=== PATIENT | female | born 2000 | race Caucasian/White ===

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

== ENCOUNTER 2024-11-03 18:28 | Emergency (ER) | payer OTHER, SELFPAY ==
--- NOTE | 2024-11-03 18:37 | ED.ABDPAIN ---
HPI - Abdominal Pain General Chief Complaint: Abdominal Pain Stated Complaint: Stomach Pain Time Seen by Provider: 11/03/24 18:37 Source: patient Mode of arrival: ambulatory Limitations: no limitations History of Present Illness HPI narrative: 24-year-old female presents with complaint of left lower quadrant abdominal pain since this morning. Intermittently radiating to left lower back. Reports pain getting progressively worse today. Recent positive test at home. Last menstrual period September 11, approximately 8 weeks . No vaginal bleeding. Patient tearful. No urinary symptoms. All systems reviewed and negative except as noted above. Related Data Home Medications ?Medication ?Instructions ?Recorded ?Confirmed ?Last Taken ?Type No Home Medications 11/03/24 11/03/24 Unknown History Allergies Allergy/AdvReac Type Severity Reaction Status Date / Time No Known Allergies Allergy Verified 11/03/24 18:38 Review of Systems Review of Systems: CONSTITUTIONAL: Denies fever, chills, or sweats. EYES: Denies visual changes, redness, or discharge. ENT: Denies rhinorrhea, congestion, sore throat, or otalgia. CARDIOVASCULAR: Denies chest pain, palpitations, or edema. RESPIRATORY: Denies cough or dyspnea. GASTROINTESTINAL: Reports left lower abdominal pain. Denies nausea, vomiting, or diarrhea. GENITOURINARY: Denies dysuria or hematuria. SKIN: Denies rash or itching. MUSCULOSKELETAL: Denies back pain, joint pain, or myalgia. NEUROLOGIC: Denies headache, numbness, or weakness. PSYCHIATRIC: Denies anxiety or depression. All other systems reviewed are negative, except as documented in HPI. [facility] Past Medical History Medical History (Updated 11/03/24 @ 18:51 by Faviola Lozano NP) Transposition great arteries Migraines Family History Family History Mother Diabetes mellitus Patient's mother is in good health High cholesterol Social History Social History Smoking status: Never smoker Second hand tobacco smoke exposure: No Alcohol intake: never Comments At time of signature, agree with nursing past medical, surgical, social and family history. There is no relevant family history pertinent to the presenting complaint. Exam Narrative: GENERAL: This is a well-nourished, well-developed patient, in no apparent distress. HEAD: normocephalic, atraumatic. EYES: PERRL. Sclera clear/white. Vision is grossly intact. EARS: External ears normal NOSE: External nose normal NECK: Neck supple, non-tender without lymphadenopathy, masses or thyromegaly. CARDIOVASCULAR: Regular rate and rhythm without murmurs, gallops, or rubs. RESPIRATORY: Clear to auscultation. Breath sounds equal bilaterally. No wheezes, rales, or rhonchi. SKIN: warm, Dry, intact with no suspicious lesions or rash, good texture and turgor. NEURO: awake, alert, and oriented to person, place and time. There were no obvious focal neurologic abnormalities. EXTREMITIES: No joint tenderness, effusion, or edema noted. Course Course Level of Care: Express Care Visit Vital Signs Vital signs: Vital Signs Temperature 37.4 C 11/03/24 18:38 Pulse Rate 89 11/03/24 18:38 Respiratory Rate 18 11/03/24 18:38 Blood Pressure 138/67 11/03/24 18:38 Pulse Oximetry 100 11/03/24 18:38 Temperature 37.4 C 11/03/24 18:38 Pulse Rate 89 11/03/24 18:38 Respiratory Rate 18 11/03/24 18:38 Blood Pressure 138/67 11/03/24 18:38 Pulse Oximetry 100 11/03/24 18:38 Reviewed Transfer Transfered to: [place] Transportation: Other (Private car) Transfer rationale: Patient approximately 8 weeks . No transferring to ER to rule out ectopic . Accepting physician: Estrella Nolasco nurse practitioner MDM - Abdominal Pain MDM Narrative Medical decision making narrative: Urinalysis trace leukocytes. No urinary symptoms, Most likely not urinary tract infection. Will transfer to ER to rule at topic . Lab Data Labs: Lab Results 11/03/24 Range/Units 18:43 POC Urine Color Yellow POC Urine Clarity Clear POC Urine pH 6.0 POC Ur Specif [place] 1.025 POC Urine Protein Negative (Negative) POC Ur Glucose (UA) Negative (Negative) POC Urine Ketones Negative (Negative) POC Urine Blood Negative (Negative) POC Urine Nitrite Negative (Negative) POC Urine Bilirubin Negative (Negative) POC Urine Urobilinogen 0.2 POC U Leukocyte Esteras Trace (Negative) POC Urine HCG, Qual Positive (Negative) Discharge Plan Discharge Clinical Impression: Left lower quadrant abdominal pain during Patient Disposition: Acute Care Hospital Condition: Stable Additional Instructions: Go directly to [facility]. Do not have anything to eat or drink. Patient Language: Bolivian Prescriptions: No Action No Home Medications Follow-up/Referrals: Nory,Nora Castro, SENIOR COMPUTER SPECIALIST [Primary Care Provider] - Time of Disposition: 18:51
[2024-11-03 18:38] VITALS: BP 138/67; PULSE 89; RESP 18; TEMP 37.4; O2SAT 100
[2024-11-03 18:45] LABS: BEDSIDEPREGUCG Positive (Negative); EDUAAPPEAR Clear; EDUABILI Negative (Negative); EDUABLOOD Negative (Negative); EDUACOLOR1 Yellow; EDUAGLUCOSE Negative (Negative); EDUAKETONE Negative (Negative); EDUALEUKO Trace (Negative); EDUANITRATE Negative (Negative); EDUAPROTEIN Negative (Negative); EDUASPGRAVITY 1.025; EDUAUROBILI 0.2
== END 2024-11-03 18:55 | disposition short-term general hospital (02) ==
PROVIDERS: Emergency Provider Nurse Practitioner Family; PCP Nurse Practitioner Family
DX: O99.891 Other specified diseases and conditions complicating pregnancy (principal); Z3A.08 8 weeks gestation of pregnancy; R10.32 Left lower quadrant pain
CPT/HCPCS: 81003; 81025; 99212; G0463

== ENCOUNTER 2024-11-03 19:09 | Emergency (ER) | payer OTHER, SELFPAY ==
--- NOTE | ~2024-11-03 | US_ITS ---
US OB <=14 wk fetus w TV Ordering provider: Opal Carr MD History: . R/O ectopic . Comparison: None. Technique: Transabdominal and endovaginal ultrasound of the pelvis (Doppler ultrasound interrogation techniques used as needed for this exam.) FINDINGS: CERVIX: Normal. UTERUS: Measures 8.8x 4.1x 5.9 cm in length which is within normal limits and is anteverted. No myom etrial masses. ENDOMETRIUM: Normal in thickness measuring 11 mm. (Note: the premenopausal endometrium may measure up to 16 mm when in the secretory phase.) No endometrial masses, cysts or fluid. CUL DE SAC: Minimal free fluid. RIGHT OVARY: Normal in size measuring 2.4x 1.2x 1.2 cm. Normal echotexture. Doppler vascular flow pre sent. LEFT OVARY: Normal in size measuring 3.7x 2.8x 2.2 Normal echotexture. Doppler vascular flow present. Simple cyst is seen measuring 1.9 x 1 x 1.1 cm. ADNEXA: Normal. No mass. IMPRESSION: No evidence of intrauterine . Follow-up advised. Left ovarian simple cyst. Minimal fluid in the cul-de-sac. Otherwise, normal pelvic ultrasound. Reviewed, dictated and finalized at location A. IMPRESSION: No evidence of intrauterine . Follow-up advised. Left ovarian simple c yst. Minimal fluid in the cul-de-sac. Otherwise, normal pelvic ultrasound.
[2024-11-03 19:11] VITALS: BP 149/81; PULSE 92; RESP 16; TEMP 36.8; O2SAT 100
--- NOTE | 2024-11-03 19:23 | PC.NURSE ---
Patient taken to US from waiting room.
--- NOTE | 2024-11-03 20:25 | ED_ITS ---
HPI - Abdominal Pain General Chief Complaint: Abdominal Pain Stated Complaint: L lower abd pain, R/O ectopic, sent from Time Seen by Provider: 11/03/24 20:09 History of Present Illness HPI narrative: Patient is a 24-year-old female who presents to the ER with left lower quadrant abdominal pain that started this morning. She reports the pain was so severe it woke her up from her sleep at 7:00 a.m. Patient reports she took Tylenol and Tums around 1:00 p.m., which helped relieve some of her pain. She denies any vaginal bleeding, abnormal vaginal discharge, or urinary symptoms. 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 She denies any other medical history relevant to this ER visit. Related Data Home Medications ?Medication ?Instructions ?Recorded ?Confirmed ?Last Taken ?Type No Home Medications 11/03/24 11/03/24 Unknown History Allergies Allergy/AdvReac Type Severity Reaction Status Date / Time No Known Allergies Allergy Verified 11/03/24 21:55 Review of Systems 2 Review of Systems: All systems reviewed & are unremarkable except as noted in HPI and below PMFSH Past Medical History Medical History (Updated 11/03/24 @ 23:07 by Megan Saeed APRN) Transposition great arteries Migraines Family History Family History Mother Diabetes mellitus Patient's mother is in good health High cholesterol Social History Social History Smoking status: Never smoker Second hand tobacco smoke exposure: No Alcohol intake: never Exam 2 Narrative: GENERAL: Well appearing, well-nourished, non-toxic, in no acute distress. HEAD: Normocephalic, atraumatic. NECK: Supple. No adenopathy, no masses. RESPIRATORY: Airway patent, respirations nonlabored. Clear to auscultation bilaterally, no rales, rhonchi, wheezing. CARDIOVASCULAR: Regular rate and rhythm with known murmur. Peripheral pulses 2+ and equal bilaterally. ABDOMINAL: Soft, tender LUQ, LLQ, and RLQ, nondistended, no hepatosplenomegaly. Normoactive BS. MUSCULOSKELETAL: Moves all extremities. Strength/ROM intact without gross deformities. SKIN: Warm, dry, normal color. No rashes. NEURO: A&O X3. Speech clear. Cranial nerves II-XII intact. No ataxic movements. PSYCHIATRIC: Appropriate mood and affect. Normal interaction. Course Vital Signs Vital signs: Vital Signs Temperature 36.8 C 11/03/24 19:11 Pulse Rate 92 11/03/24 19:11 Respiratory Rate 16 11/03/24 19:11 Blood Pressure 149/81 H 11/03/24 19:11 Pulse Oximetry 100 11/03/24 19:11 Oxygen Delivery Room Air 11/03/24 19:11 Temperature 36.8 C 11/03/24 19:11 Pulse Rate 92 11/03/24 19:11 Respiratory Rate 16 11/03/24 19:11 Blood Pressure 149/81 H 11/03/24 19:11 Pulse Oximetry 100 11/03/24 19:11 Oxygen Delivery Room Air 11/03/24 19:11 MDM - Abdominal Pain MDM Narrative Medical decision making narrative: Patient is a 24-year-old female who presents to the ER with left lower quadrant abdominal pain that started this morning. She reports the pain was so severe it woke her up from her sleep at 7:00 a.m. Patient reports she took Tylenol and Tums around 1:00 p.m., which helped relieve some of her pain. She denies any vaginal bleeding, abnormal vaginal discharge, or urinary symptoms. 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 She denies any other medical history relevant to this ER visit. Labs Ordered: CBC, CMP, APTT, INR, type and screen, Rh Immune Globulin screen, UA Imaging Ordered: Ultrasound Ob less than 14 weeks Medications Ordered: None necessary Results: Pt's US indicates No evidence of intrauterine . Follow-up advised. Left ovarian simple cyst. Minimal fluid in the cul-de-sac. Otherwise, normal pelvic ultrasound. Her beta hCG levels are 265. Diagnosis: Early , threatened miscarriage, left lower quadrant abdominal pain Consults: OBGYN (outpatient) pt already has an OBGYN established Patient Education/Shared MDM: Results of lab work and imaging shared with patient. Patient strongly advised to maintain hydration status upon discharge and follow-up with her OBGYN as soon as possible. She will not be discharged home with any new prescriptions. Strict return precautions provided. Patient verbalized understanding and is in agreement with plan. Vital signs stable at time of discharge. All questions answered. Differential Diagnosis Differential diagnosis: Likely abdominal pain and constipation Lab Data Attestation: I reviewed the patient's lab results. 11/03/24 21:18 11/03/24 21:18 Labs: Lab Results 11/03/24 11/03/24 Range/Units 21:18 21:30 WBC 11.3 H (4.5-10.0) K/mm3 RBC 4.56 (4.2-5.4) M/mm3 Hgb 13.6 (12.0-15.0) g/dL Hct 41.3 (37.0-47.0) % MCV 90.6 (80-100) fl MCH 29.8 (26-34) pg MCHC 32.9 (32-36) g/dl RDW 11.9 (11.5-14.5) % Plt Count 314 (150-375) k/mm3 MPV 10.6 H (7.4-10.4) fl Immature Gran % (Auto) 0.3 (0-0.5) % Neut % (Auto) 67.2 (45.5-73.1) % Lymph % (Auto) 19.7 (18.3-44.2) % [place] % (Auto) 8.0 (2.6-8.5) % Eos % (Auto) 4.0 (0-4.4) % Baso % (Auto) 0.8 (0.2-1.2) % Lymph # (Auto) 2.23 (0.9-3.2) K/mm3 [place] # (Auto) 0.9 H (0.1-0.6) K/mm3 Eos # (Auto) 0.5 H (0-0.3) K/mm3 Baso # (Auto) 0.1 (0.0-0.1) K/mm3 Abs Immat Gran (auto) 0.03 (0.00-0.031) K/mm3 Absolute Neuts (auto) 7.6 H (1.3-6.7) K/mm3 Absolute Nucleated RBC 0.000 (0.0-0.012) K/mm3 Nucleated RBC % 0.0 (0.0-0.2) % PT 14.0 (11.1-14.7) Seconds INR 1.0 APTT 30.0 (22.3-36.8) Seconds Sodium 139 (137-145) mmol/L Potassium 3.6 (3.4-5.0) mmol/L Chloride 105 (98-107) mmol/L Carbon Dioxide 23 (22-30) mmol/L Anion Gap 11 (4-12) mmol/L BUN 7 (7-17) mg/dL Creatinine 0.62 L (0.7-1.0) mg/dL Estim Creat Clear Calc 110 ml/min Estimated GFR > 60 (59 - ) Glucose 98 (65-110) mg/dL Calcium 9.7 (8.4-10.2) mg/dL Total Bilirubin 0.4 (0.2-1.3) mg/dL AST 52 H (14-36) U/L ALT 39 H (6-35) U/L Alkaline Phosphatase 133 H (38-126) U/L Total Protein 8.0 (6.3-8.2) g/dL Albumin 4.6 (3.5-5.1) g/dL Beta HCG, Quant 265.48 mIU/ML Urine Color Yellow (Yellow) Urine Appearance Clear (Clear) Urine pH 6.0 (5.0-9.0) Ur Specific [place] 1.011 (1.001-1.035) Urine Protein Negative (Negative) mg/dL Urine Glucose (UA) Negative (Negative) mg/dL Urine Ketones Negative (Negative) mg/dL Ur Blood (Man) Negative (Negative) Urine Nitrate Negative (Negative) Urine Bilirubin Negative (Negative) Urine Urobilinogen 0.2 (<2.0) mg/dL Leukocyte Esterase Rfl Trace H (Negative) CUCO/UL Urine RBC 0-2 (0-2) /hpf Urine WBC 0-5 (0-3) /hpf Ur Squamous Epith Cells None seen (Few) /hpf Urine Bacteria None seen /hpf Urine Casts 0-2 POC Urine HCG, Qual Negative (Negative) Blood Type O Positive Antibody Screen Negative Screen Not Reportable Baby's Blood Type Not Reportable Baby's MICHELLE Not Reportable Doses of RhIg Required 0 Imaging Data Attestation: I personally reviewed and interpreted this imaging study as follows: Radiologist's impression: ITS Impressions Obstetrics Ultrasound 11/03/24 20:10 IMPRESSION: No evidence of intrauterine . Follow-up advised. Left ovarian simple cyst. Minimal fluid in the cul-de-sac. Otherwise, normal pelvic ultrasound. Discharge Plan Discharge Clinical Impression: Left lower quadrant abdominal pain during , Miscarriage, threatened, early , Abdominal pain in early , Early stage of Patient Disposition: Home Condition: Stable Instructions: Antibiotic Form, Abdominal Pain in (ED) Additional Instructions: Please return to the ER with any worsening symptoms. Follow-up with your OBGYN as soon as possible. You may take Tylenol 1 g by mouth every 8 hours for pain control. Today your HCG levels were 265. You will need these levels redrawn in a couple of days. Your ultrasound indicated no intrauterine , which may be because it is too early. Please contact your OBGYN to decide when they would like to do another ultrasound. Patient Language: Greek Prescriptions: No Action No Home Medications Follow-up/Referrals: Nory,Nora Castro APRN [Primary Care Provider] - Time of Disposition: 23:07
[2024-11-03 21:32] LABS: BEDSIDEPREGUCG Negative (Negative)
[2024-11-03 21:44] LABS: Basophils Absolute Auto 0.1 K/mm3 (0.0-0.1); Basophils Percent Auto 0.8 % (0.2-1.2); Eosinophils Absolute Auto 0.5 K/mm3 (0-0.3); Hematocrit 41.3 % (37.0-47.0); Hemoglobin 13.6 g/dL (12.0-15.0); Immature Granulocyte Absolute 0.03 K/mm3 (0.00-0.031); Immature Granulocyte Percent A 0.3 % (0-0.5); Lymphocytes Absolute Auto 2.23 K/mm3 (0.9-3.2); Lymphocytes Percent Auto 19.7 % (18.3-44.2); Mean Corpuscular HGB Conc 32.9 g/dl (32-36); Mean Corpuscular Hemoglobin 29.8 pg (26-34); Mean Corpuscular Volume 90.6 fl (80-100); Mean Platelet Volume 10.6 fl (7.4-10.4); Monocytes Absolute Auto 0.9 K/mm3 (0.1-0.6); Neutrophils Absolute Auto 7.6 K/mm3 (1.3-6.7); Neutrophils Percent Auto 67.2 % (45.5-73.1); Platelet Count Result 314 k/mm3 (150-375); Red Blood Count 4.56 M/mm3 (4.2-5.4); Red Cell Distribution Width 11.9 % (11.5-14.5); White Blood Count 11.3 K/mm3 (4.5-10.0)
[2024-11-03 21:52] LABS: Add Urine Microscopic? YES; Appearance Urine Clear (Clear); Bacteria Urine None Seen /hpf; Bilirubin Urine Negative (Negative); Blood Urine Negative (Negative); Color Urine Yellow (Yellow); Glucose Urine UA Negative (Negative); Ketones Urine Negative (Negative); Leukocyte Esterase Ur Trace LEU/UL (Negative); Nitrate Urine Negative (Negative); Non Pathogenic Casts 0-2; Protein Urine Negative (Negative); RBC Urine 0-2 /hpf (0-2); Specific Grav Ur 1.011 (1.001-1.035); Squamous Epithelial Cell Urine None Seen /hpf (Few); Urobilinogen Urine 0.2 mg/dL (<2.0); WBC Urine 0-5 /hpf (0-3)
[2024-11-03 21:56] LABS: Alanine Aminotransferase 39 U/L (6-35); Albumin Level 4.6 g/dL (3.5-5.1); Alkaline Phosphatase 133 U/L (38-126); Anion Gap 11 mmol/L (4-12); Aspartate Amino Transferase 52 U/L (14-36); Bilirubin,Total 0.4 mg/dL (0.2-1.3); Blood Urea Nitrogen 7 mg/dL (7-17); Calcium 9.7 mg/dL (8.4-10.2); Carbon Dioxide 23 mmol/L (22-30); Chloride 105 mmol/L (98-107); Estimated CRCL calculation 110 ml/min; Estimated Glomerular Filt Rate > 60; Glucose 98 mg/dL (65-110); Potassium 3.6 mmol/L (3.4-5.0); Sodium 139 mmol/L (137-145)
[2024-11-03 22:01] VITALS: BP 142/88; PULSE 86; RESP 15; O2SAT 99
[2024-11-03 22:13] LABS: Beta HCG Quantitative 265.48 mIU/ML
[2024-11-03 23:15] VITALS: BP 146/86; PULSE 79; RESP 14; O2SAT 99
[2024-11-03 23:16] VITALS: BP 146/86; PULSE 79; RESP 14; O2SAT 99
== END 2024-11-03 23:19 | disposition home or self-care (01) ==
PROVIDERS: Student in an Organized Health Care Education/Training Program; Emergency Provider Registered Nurse; PCP Nurse Practitioner Family
DX: O20.0 Threatened abortion (principal); Z3A.00 Weeks of gestation of pregnancy not specified
CPT/HCPCS: 36415; 76801; 76817; 80053; 81001; 81025; 84702; 85025; 85461; 85610; 85730; 86850; 86900; 86901; 99284